=== PATIENT | female | born 1970 | race Caucasian/White ===

== ENCOUNTER 2016-06-28 11:57 | Emergency (ER) | payer MEDICAID ==
[~2016-06-28 11:57] MED LIST: CEPH500C3 PO; MEDR4PAK3 PO; SERT100 PO; TRIA.1%T TOP
[2016-06-28 12:01] VITALS: BP 133/77; PULSE 78; RESP 16; TEMP 98.8; O2SAT 98
--- NOTE | 2016-06-28 12:17 | PD ---
Physical Exam Time Seen by Provider: 12:13 Narrative 45 year old female presents to ED for evaluation of lower abdominal pain since intercourse two weeks ago. Following intercourse she bled for a few days. She had intercourse again two days ago and had bleeding again following it. Her LMP was sometime last year, but she is not sure of the date. Reports no urinary symptoms. Has been having some vaginal bleeding. Subjective fever. States she is in a monogamous relationship. Has a history of endometriosis. No other significant health history. Data Data Last Documented VS Vital Signs Date Time Temp Pulse Resp B/P Pulse Ox O2 Delivery O2 Flow Rate FiO2 06/28/16 12:01 98.8 78 16 133/77 98 MDM Medical Record Reviewed: Yes Supervised Visit with HANNY: No Narrative Course 45 year old female presents to the ED for evaluation of lower abdominal pain and post coital bleeding. Appears well. VSS. Condition: Stable Becky Diallo Jun 28, 2016 12:17
[2016-06-28 13:21] LABS: BACTERIA, URINE OCC /hpf; BLOOD, URINE TRACE (NEG); COMMENT (UR) CULT NOT INDICATED; CULTURE IF INDICATED CULT NOT INDICATED; GLUCOSE,URINE NEG (NEG); KETONE, URINE NEG (NEG); MUCUS URINE FEW /lpf (OCC); NITRITE,URINE NEG (NEG); PH, URINE 6.5 (5.0-8.5); SQUAMOUS EPITHELIAL CELL URINE 3 /hpf (0-5); URINE COLOR YELLOW (YELLW/STRAW)
--- NOTE | 2016-06-28 13:32 | PD ---
HPI Chief Complaint: Academic Program Specialist Problem/Complaint Time Seen by Provider: 12:27 Travel History International Travel<30 days: No Contact w/Intl Traveler<30days: No Traveled to known affect area: No History of Present Illness HPI This is a 45-year-old female who has a history of endometriosis who presents to the emergency department with nominal discomfort described as cramping, moderate severity, intermittent, worse after intercourse. She feels like something is getting pushed on when she has intercourse and she's been having some bleeding after intercourse which is unusual for her because she doesn't routinely have a menstrual cycle. She denies any associated fevers or chills, denies any vomiting but does feel nauseous from time to time. The pains been going on intermittently for 2 weeks. She doesn't get her menstrual cycle anymore so she's not sure if this could be her endometriosis acting up. She denies any diarrhea, vomiting, or vaginal discharge. She's had one sexual partner in the past 6 months. She doesn't currently have a climbing guide. PFSH Past Medical History Depression: Yes Cerebrovascular Accident: No Diabetes: No Diminished Hearing: No Reproductive: Yes (ENDOMETRIOSIS) Myocardial Infarction: No Menopausal: Yes : 2 Para: 2 Past Surgical History Abdominal Surgery: Yes (laparoscopy) Gynecologic Surgery: Yes Oral Surgery: Yes (wisdom) Other Surgery: Yes (BILATERAL FOOT BONE SPUR REMOVAL) Social History Alcohol Use: Yes (weekends) Tobacco Use: Yes (1ppd) Substance Use: No Allergies-Medications (Allergen,Severity, Reaction): Coded Allergies: Codeine (Verified Allergy, Severe, NAUSEA, 06/28/16) Reported Meds & Prescriptions Reported Meds & Active Scripts Active No Active Prescriptions or Reported Medications Review of Systems Except as stated in HPI: all other systems reviewed are Neg Physical Exam Narrative GENERAL:Well appearing, no acute distress SKIN: Focused skin assessment warm and dry. HEAD: Atraumatic. Normocephalic. EYES: Pupils equal and round. No injection or drainage. ENT: Moist mucous membranes NECK: Trachea midline. CARDIOVASCULAR: Regular rate and rhythm. No murmur appreciated. RESPIRATORY: Clear to auscultation. Breath sounds equal bilaterally. GASTROINTESTINAL: Abdomen soft, mildly tender to palpation in the suprapubic region with no rebound or guarding. CURING PRESS OPERATOR: Thick mucoid discharge coming from the cervix with no cervical motion tenderness or adnexal tenderness MUSCULOSKELETAL: No obvious deformities. NEUROLOGICAL: Awake and alert. No obvious cranial nerve deficits. Moving all extremities. PSYCHIATRIC: Appropriate mood and affect; insight and judgment normal. Data Data Last Documented VS Vital Signs Date Time Temp Pulse Resp B/P Pulse Ox O2 Delivery O2 Flow Rate FiO2 06/28/16 12:01 98.8 78 16 133/77 98 Orders Wet Prep Profile (06/28/16 12:42) Gc And Chlamydia Pcr (06/28/16 12:42) Urinalysis - C+S If Indicated (06/28/16 12:42) Ed Urine Pregnancytest Poc (06/28/16 12:42) Labs Laboratory Tests Test 06/28/16 12:56 Urine Color YELLOW Urine Turbidity HAZY Urine pH 6.5 Urine Specific [place] 1.014 Urine Protein NEG mg/dL Urine Glucose (UA) NEG mg/dL Urine Ketones NEG mg/dL Urine Occult Blood TRACE Urine Nitrite NEG Urine Bilirubin NEG Urine Urobilinogen LESS THAN 2.0 MG/DL Urine Leukocyte Esterase SMALL Urine RBC 2 /hpf Urine WBC 4 /hpf Urine Squamous Epithelial 3 /hpf Cells Urine Bacteria OCC /hpf Urine Mucus FEW /lpf Microscopic Urinalysis Comment CULT NOT INDICATED Clue Cells (Wet Prep) NONE SEEN Vaginal Trichomonas (Wet Prep) NONE SEEN Vaginal Yeast (Wet Prep) NONE SEEN MDM Medical Decision Making Medical Screen Exam Complete: Yes Emergency Medical Condition: Yes Interpretation(s) Afebrile, no tachycardia, normotensive Urinalysis: No infection Differential Diagnosis Cervicitis, pelvic inflammatory disease, ovarian cyst rupture, endometriosis, gynecologic malignancy, urinary tract infection Narrative Course This is a 45-year-old female who presents to the emergency department with pelvic pain, worse with intercourse associated with some vaginal spotting. She is very well-appearing. She does have mucoid discharge at the cervix concerning for possible sexually transmitted disease. I did discuss this possibility with her and I think it's reasonable to treat her empirically for cervicitis. She also may be having symptomatic endometriosis. I don't think she requires any advanced imaging here in the emergency department based on her benign exam and appearance ,and I think she needs follow-up with a climbing guide. Diagnosis Primary Impression: Cervicitis Patient Instructions: General Instructions Additional Instructions: If you develop severe or worsening abdominal pain, fever>100.4, persistent vomiting or inability to eat or drink return to the emergency department immediately. Follow up with [facility] at: Follow up with: [facility] [address] [facility] [place] [address] Office Hours Monday - 9:00 am - 5:30 pm Monday 8:00 am - 12:00 pm Teen Tuesdays 4:00 - 6:30 pm Med/Other Pt SpecificInfo: No Change to Meds Scripts No Active Prescriptions or Reported Meds Disposition: 01 DISCHARGE HOME Condition: Lorna Kamara MD Jun 28, 2016 13:32
[2016-06-28] MEDS ORDERED: LIDOCAINE HCL 1% 50 ML VIAL IM ONE (13:45)
[2016-06-28] MEDS ORDERED: AZITHROMYCIN PWD FOR SUSP 1 GM PACKET PO ONE (13:45)
[2016-06-28] MEDS ORDERED: cefTRIAXone 250 MG VIAL IM ONE (13:45)
[2016-06-28 14:39] VITALS: BP 130/80
[2016-06-28 16:04] LABS: CHLAMYDIA PCR DETECTED (NOT DETECT); NEISSERIA PCR NOT DETECTED (NOT DETECT)
== END 2016-06-28 14:49 | disposition home or self-care (01) ==
LOC: NEPD 11:57
DX: N72 Inflammatory disease of cervix uteri (principal)
CPT/HCPCS: 81001; 84703; 87210; 87491; 87591; 96372; 99283; J0696

== ENCOUNTER 2016-11-24 11:06 | Emergency (ER) | payer MEDICAID ==
[~2016-11-24] VITALS: Ht 165.1 cm; Wt 57.0 kg
[2016-11-24] MEDS ORDERED: IOHEXOL 350 MG/ML 10 ML VIAL (for RAD DIAG) IVCONTRAST ONE (11:07)
[2016-11-24 11:08] VITALS: BP 124/75; PULSE 85; RESP 20; TEMP 98.5; O2SAT 97
[2016-11-24 11:30] VITALS: PULSE 80; RESP 16; O2SAT 100
[2016-11-24] MEDS ORDERED: SODIUM CHLORIDE 0.9% FLUSH 10 ML FLUSH IV FLUSH PRN (11:30)
--- NOTE | 2016-11-24 11:34 | PD ---
HPI Chief Complaint: Abdominal Pain Time Seen by Provider: 11:29 Travel History International Travel<30 days: No Contact w/Intl Traveler<30days: No Traveled to known affect area: No History of Present Illness HPI 46-year-old female patient with history of endometriosis, perimenopausal, has not had her menses and several months, presents to the ER today because of 2 weeks history of lower abdominal pains, diarrhea, states that she had small amounts of vaginal bleeding when she wiped for several days. She has had intermittent nausea, but reports no fevers or burning on urination. Pain currently rated as 6 out of 10. Modifying Factors: None Associated Signs & Symptoms: Lower abdominal pain, nausea, diarrhea, vaginal bleeding Risk Factors: None PFSH Past Medical History Depression: Yes Cerebrovascular Accident: No Diabetes: No Diminished Hearing: No Neurologic: Yes Reproductive: Yes (ENDOMETRIOSIS) Myocardial Infarction: No Tetanus Vaccination: > 5 Years Influenza Vaccination: No ?: Not LMP: UNKNOWN Menopausal: Yes : 2 Para: 2 Past Surgical History Abdominal Surgery: Yes (laparoscopy) Gynecologic Surgery: Yes Oral Surgery: Yes (wisdom) Other Surgery: Yes (BILATERAL FOOT BONE SPUR REMOVAL) Social History Alcohol Use: Yes (weekends) Tobacco Use: Yes (1ppd) Substance Use: No (PT DENIES ) Allergies-Medications (Allergen,Severity, Reaction): Coded Allergies: codeine (Unverified Adverse Reaction, Severe, NAUSEA, 11/24/16) Reported Meds & Prescriptions Reported Meds & Active Scripts Active No Active Prescriptions or Reported Medications Review of Systems Except as stated in HPI: all other systems reviewed are Neg Physical Exam Narrative GENERAL: Middle age well-developed female patient currently in mild distress. Awake and oriented 3. SKIN: Focused skin assessment warm/dry. HEAD: Atraumatic. Normocephalic. EYES: Pupils equal and round. No scleral icterus. No injection or drainage. ENT: No nasal bleeding or discharge. Mucous membranes pink and moist. NECK: Trachea midline. No JVD. CARDIOVASCULAR: Regular rate and rhythm. No murmur appreciated. RESPIRATORY: No accessory muscle use. Clear to auscultation. Breath sounds equal bilaterally. GASTROINTESTINAL: Abdomen soft, mild diffuse abdominal tenderness without guarding or rebound, nondistended. Hepatic and splenic margins not palpable. GENITOURINARY: Normal external genitalia without lesions or erythema. Vaginal vault with small amount of blood but no drainage. Cervical os was closed without drainage. No cervical motion tenderness. Uterus nontender and nonenlarged. Bilateral adnexa nontender without masses. MUSCULOSKELETAL: No obvious deformities. No clubbing. No cyanosis. No edema. NEUROLOGICAL: Awake and alert. No obvious cranial nerve deficits. Motor grossly within normal limits. Normal speech. PSYCHIATRIC: Appropriate mood and affect; insight and judgment normal. Data Data Last Documented VS Vital Signs Date Time Temp Pulse Resp B/P (MAP) Pulse Ox O2 Delivery O2 Flow Rate FiO2 11/24/16 12:07 97.8 68 16 124/61 (82) 100 11/24/16 11:30 Room Air Orders Orders Complete Blood Count With Diff (11/24/16 11:29) Comprehensive Metabolic Panel (11/24/16 11:29) Lipase (11/24/16 11:29) Urinalysis - C+S If Indicated (11/24/16 11:29) Iv Access Insert/Monitor (11/24/16 11:29) Ecg Monitoring (11/24/16 11:29) Oximetry (11/24/16 11:29) Sodium Chloride 0.9% Flush (Ns Flush) (11/24/16 11:30) Ed Urine Pregnancytest Poc (11/24/16 11:29) Ct Abd/Pel W Iv Contrast(Rout) (11/24/16 11:38) Gc And Chlamydia Pcr (11/24/16 11:38) Wet Prep Profile (11/24/16 11:38) Iohexol 350 Inj (Omnipaque 350 Inj) (11/24/16 11:07) Labs Laboratory Tests Test 11/24/16 11:30 11/24/16 11:35 11/24/16 12:09 White Blood Count 6.5 TH/MM3 Red Blood Count 4.85 MIL/MM3 Hemoglobin 15.4 GM/DL Hematocrit 45.2 % Mean Corpuscular Volume 93.3 FL Mean Corpuscular Hemoglobin 31.7 PG Mean Corpuscular Hemoglobin Concent 33.9 % Red Cell Distribution Width 12.9 % Platelet Count 263 TH/MM3 Mean Platelet Volume 8.8 FL Neutrophils (%) (Auto) 58.6 % Lymphocytes (%) (Auto) 30.1 % Monocytes (%) (Auto) 8.5 % Eosinophils (%) (Auto) 2.3 % Basophils (%) (Auto) 0.5 % Neutrophils # (Auto) 3.8 TH/MM3 Lymphocytes # (Auto) 2.0 TH/MM3 Monocytes # (Auto) 0.6 TH/MM3 Eosinophils # (Auto) 0.2 TH/MM3 Basophils # (Auto) 0.0 TH/MM3 CBC Comment DIFF FINAL Differential Comment Blood Urea Nitrogen 11 MG/DL Creatinine 0.77 MG/DL Random Glucose 71 MG/DL Total Protein 7.4 GM/DL Albumin 3.6 GM/DL Calcium Level 8.6 MG/DL Alkaline Phosphatase 125 U/L Aspartate Amino Transf (AST/SGOT) 152 U/L Alanine Aminotransferase (ALT/SGPT) 290 U/L Total Bilirubin 0.4 MG/DL Sodium Level 141 MEQ/L Potassium Level 3.7 MEQ/L Chloride Level 109 MEQ/L Carbon Dioxide Level 27.4 MEQ/L Anion Gap 5 MEQ/L Estimat Glomerular Filtration Rate 80 ML/MIN Lipase 232 U/L Urine Color LIGHT-YELLOW Urine Turbidity CLEAR Urine pH 6.5 Urine Specific [place] 1.005 Urine Protein NEG mg/dL Urine Glucose (UA) NEG mg/dL Urine Ketones NEG mg/dL Urine Occult Blood MOD Urine Nitrite NEG Urine Bilirubin NEG Urine Urobilinogen LESS THAN 2.0 MG/DL Urine Leukocyte Esterase SMALL Urine RBC 1 /hpf Urine WBC LESS THAN 1 /hpf Urine Squamous Epithelial Cells 2 /hpf Urine Bacteria RARE /hpf Urine Mucus FEW /lpf Microscopic Urinalysis Comment CULT NOT INDICATED Clue Cells (Wet Prep) NONE SEEN Vaginal Trichomonas (Wet Prep) NONE SEEN Vaginal Yeast (Wet Prep) NONE SEEN Chlamydia trachomatis DNA (PCR) NOT DETECTED Neisseria gonorrhoeae DNA (PCR) NOT DETECTED MDM Medical Decision Making Medical Screen Exam Complete: Yes Emergency Medical Condition: Yes Medical Record Reviewed: Yes Interpretation(s) Laboratory Tests Test 11/24/16 11:30 11/24/16 11:35 11/24/16 12:09 Hemoglobin 15.4 GM/DL (11.6-15.3) Monocytes (%) (Auto) 8.5 % (0.0-8.0) Random Glucose 71 MG/DL (74-106) Alkaline Phosphatase 125 U/L (45-117) Aspartate Amino Transf (AST/SGOT) 152 U/L (15-37) Alanine Aminotransferase (ALT/SGPT) 290 U/L (10-53) Chloride Level 109 MEQ/L (98-107) Estimat Glomerular Filtration Rate 80 ML/MIN (>89) Urine Occult Blood MOD (NEG) Urine Leukocyte Esterase SMALL (NEG) Urine Bacteria RARE /hpf (NONE) Urine Mucus FEW /lpf (OCC) Last 24 hours Impressions Abdomen/Pelvis CT 11/24/16 1138 Signed Impressions: Service Date/Time: , November 24, 2016 13:32 - CONCLUSION: Few benign hepatic cysts. No evidence of bowel obstruction or mass. The appendix is normal. Stool throughout the colon without evidence of wall thickening or mass. Shiva Hurt MD Differential Diagnosis Lower abdominal pain, nausea, diarrhea, vaginal bleeding: UTI versus dysfunctional uterine bleeding versus gastroenteritis Narrative Course Lab work shows elevated liver enzymes. CAT scan shows benign liver cyst but no signs of gallbladder issues and no signs of other acute pathology. Patient states that she had been exposed hepatitis C but never got testing. At this point, I would recommend that she gets testing for further evaluation. In addition, she is not and has postmenopausal vaginal bleeding, will need to follow-up with [facility] for further evaluation of endometrium. Return for any worsening in bleeding, new symptoms as needed. The plan has discussed with her and she states understanding. Diagnosis Primary Impression: Liver enzyme elevation Additional Impressions: Hepatic cyst Postmenopausal vaginal bleeding Additional Instructions: Please follow-up with your primary care physician regarding hepatic enzyme elevations and with your [facility] regarding the abnormal vaginal bleeding. Return for any worsening in symptoms as needed. Med/Other Pt SpecificInfo: Prescription(s) given Scripts Tramadol (Tramadol) 50 Mg Tab 50 MG PO Q8H Y for PAIN, #15 TAB 0 Refills Prov: Quan Ortiz MD 11/24/16 Disposition: 01 DISCHARGE HOME Condition: Stable Quan Ortiz MD Nov 24, 2016 11:34
[2016-11-24 12:01] LABS: AUTOMATED NEUTROPHIL # 3.8 TH/MM3 (1.8-7.7); BASOPHIL % 0.5 % (0.0-2.0); EOSINOPHIL # 0.2 TH/MM3 (0-0.4); EOSINOPHIL % 2.3 % (0.0-4.0); HEMATOCRIT 45.2 % (35.0-46.0); HEMO FLAGS DIFF FINAL; LYMPH % 30.1 % (9.0-44.0); MEAN CELL VOLUME 93.3 FL (80.0-100.0); MEAN CORPUSCULAR HEMOGLOBIN 31.7 PG (27.0-34.0); MEAN CORPUSCULAR HGB CONC 33.9 % (32.0-36.0); MONO % 8.5 % (0.0-8.0); NEUT % 58.6 % (16.0-70.0); PLATELET COUNT 263 TH/MM3 (150-450); RED BLOOD COUNT 4.85 MIL/MM3 (4.00-5.30); RED CELL DISTRIBUTION WIDTH 12.9 % (11.6-17.2); WHITE BLOOD COUNT 6.5 TH/MM3 (4.0-11.0)
[2016-11-24 12:04] LABS: BACTERIA, URINE RARE /hpf; BLOOD, URINE MOD (NEG); COMMENT (UR) CULT NOT INDICATED; CULTURE IF INDICATED CULT NOT INDICATED; GLUCOSE,URINE NEG (NEG); KETONE, URINE NEG (NEG); MUCUS URINE FEW /lpf (OCC); NITRITE,URINE NEG (NEG); PH, URINE 6.5 (5.0-8.5); SQUAMOUS EPITHELIAL CELL URINE 2 /hpf (0-5); URINE COLOR LIGHT-YELLOW (YELLW/STRAW)
[2016-11-24 12:07] VITALS: BP 124/61; PULSE 68; RESP 16; TEMP 97.8; O2SAT 100
[2016-11-24 12:37] LABS: ALT (GPT) 290 U/L (10-53); ANION GAP 5 MEQ/L (5-15); AST (GOT) 152 U/L (15-37); BICARBONATE 27.4 MEQ/L (21.0-32.0); BLOOD UREA NITROGEN 11 MG/DL (7-18); CHLORIDE 109 MEQ/L (98-107); GLOMERULAR FILTRATION RATE 80 ML/MIN (>89); POTASSIUM 3.7 MEQ/L (3.5-5.1); SODIUM (NA) 141 MEQ/L (136-145)
[2016-11-24 12:40] LABS: ALKALINE PHOSPHATASE 125 U/L (45-117); TOTAL BILIRUBIN ADULT 0.4 MG/DL (0.2-1.0)
--- NOTE | 2016-11-24 14:10 | RADRPT ---
EXAM DATE/TIME: 11/24/2016 13:32 [facility] COMPARISON: No previous studies available for comparison. INDICATIONS : Abdomen pain for 2 weeks with nausea IV CONTRAST: 93 cc Omnipaque 350 (iohexol) IV ORAL CONTRAST: No oral contrast ingested. RADIATION DOSE: 9.96 CTDIvol (mGy) MEDICAL HISTORY : None SURGICAL HISTORY : None. ENCOUNTER: Initial ACUITY: 2 weeks PAIN SCALE: 5/10 LOCATION: diffuse abdomen TECHNIQUE: Volumetric scanning of the abdomen and pelvis was performed. Using automated exposure control and ad justment of the mA and/or kV according to patient size, radiation dose was kept as low as reasonably achievable to obtain optimal diagnostic quality images. DICOM format image data is available electro nically for review and comparison. FINDINGS: LOWER LUNGS: The visualized lower lungs are clear. LIVER: Homogeneous density without lesion other than four small cysts. There is no dilation of the biliary tree. No calcified gallstones. SPLEEN: Normal size without lesion. PANCREAS: Within normal limits. KIDNEYS: Normal in size and shape. There is no mass, stone or hydronephrosis. ADRENAL GLANDS: Within normal limits. VASCULAR: There is no aortic aneurysm. BOWEL/MESENTERY: The stomach, small bowel, and colon demonstrate no acute abnormality. There is no free intraperitone al air or fluid. ABDOMINAL WALL: Within normal limits. RETROPERITONEUM: There is no lymphadenopathy. BLADDER: No wall thickening or mass. REPRODUCTIVE: Within normal limits. Suspected ovarian cyst INGUINAL: There is no lymphadenopathy or hernia. MUSCULOSKELETAL: Within normal limits for patient age. Lipoma within the right gluteus sanjana CONCLUSION: Few benign hepatic cysts. No evidence of bowel obstruction or mass. The appendix is normal. Stool thr oughout the colon without evidence of wall thickening or mass. Shiva Hurt MD on November 24, 2016 at 14:06 Board Certified Radiologist. This report was verified electronically.
[2016-11-24 14:14] LABS: CHLAMYDIA PCR NOT DETECTED (NOT DETECT); NEISSERIA PCR NOT DETECTED (NOT DETECT)
[2016-11-24] MEDS ORDERED: TRAM50TA PO (14:26)
[2016-11-24 14:45] VITALS: BP 122/81; TEMP 97.8
== END 2016-11-24 14:45 | disposition home or self-care (01) ==
LOC: NEPE 11:06
DX: R74.8 Abnormal levels of other serum enzymes (principal); K76.89 Other specified diseases of liver; N95.0 Postmenopausal bleeding; R19.7 Diarrhea, unspecified; F17.210 Nicotine dependence, cigarettes, uncomplicated
CPT/HCPCS: 74177; 80053; 81001; 83690; 84703; 85025; 87210; 87491; 87591; 99285; Q9967

== ENCOUNTER 2017-02-28 14:10 | Emergency (ER) | payer MEDICAID ==
[~2017-02-28 14:10] MED LIST changes: -CEPH500C3 PO; -MEDR4PAK3 PO; -SERT100 PO; +TRAM50TA PO; -TRIA.1%T TOP
[2017-02-28 14:12] VITALS: BP 107/68; PULSE 73; RESP 16; TEMP 98.9; O2SAT 98
--- NOTE | 2017-02-28 15:07 | PD ---
HPI Chief Complaint: Cold / Flu Symptoms Time Seen by Provider: 14:37 Travel History International Travel<30 days: No Contact w/Intl Traveler<30days: No Traveled to known affect area: No History of Present Illness HPI This is a 46-year-old female here for evaluation of possible dehydration. She reports she was diagnosed with influenza yesterday at a walk in urgent care clinic. She was put on Tamiflu. She reports she vomited once today. She has generalized body aches and felt she may be dehydrated. She also reports that she has upper back and chest pain that occurs while coughing. Symptom severity is moderate. No aggravating or alleviating factors. PFSH Past Medical History Depression: Yes Cerebrovascular Accident: No Diabetes: No Diminished Hearing: No Neurologic: Yes Reproductive: Yes (ENDOMETRIOSIS) Myocardial Infarction: No ?: Not Menopausal: Yes : 2 Para: 2 Past Surgical History Abdominal Surgery: Yes (laparoscopy) Gynecologic Surgery: Yes Oral Surgery: Yes (wisdom) Other Surgery: Yes (BILATERAL FOOT BONE SPUR REMOVAL) Social History Alcohol Use: Yes (weekends) Tobacco Use: Yes (1ppd) Substance Use: No (PT DENIES ) Allergies-Medications (Allergen,Severity, Reaction): Coded Allergies: codeine (Unverified Adverse Reaction, Severe, NAUSEA, 11/24/16) Reported Meds & Prescriptions Reported Meds & Active Scripts Active Review of Systems Except as stated in HPI: all other systems reviewed are Neg General / Constitutional: Positive: Fever, Chills Eyes: No: Visual changes HENT: No: Headaches Respiratory: Positive: Cough Gastrointestinal: Positive: Nausea, No: Abdominal Pain Genitourinary: No: Dysuria Musculoskeletal: Positive: Myalgias Skin: No Rash Physical Exam Narrative GENERAL: Middle-aged well-appearing female. SKIN: Warm and dry. No rash. HEAD: Normocephalic. HEAD: Atraumatic. Normocephalic. EYES: PERRL, EOMI, no discharge or injection. No scleral icterus. EARS: Bilateral pinnae and external canals appear within normal limits. Bilateral tympanic membranes without erythema, dullness or perforation. NOSE: Nasal turbinates appear normal without nasal blood, purulent drainage or septal hematoma. THROAT: Mucosa pink and moist. No erythema or exudates. No uvular edema. No uvular, palatal, or tonsillar deviation. Airway patent. NECK: Supple, trachea midline. No JVD or lymphadenopathy. No meningismus CARDIOVASCULAR: Regular rate and rhythm without murmurs, gallops, or rubs. Mild tenderness to the upper chest wall to palpation. RESPIRATORY: Breath sounds equal bilaterally. No accessory muscle use. GASTROINTESTINAL: Abdomen soft, non-tender, nondistended. MUSCULOSKELETAL: No cyanosis, or edema. BACK: Mildly tender in the bilateral trapezius muscles. No CVA tenderness. Data Data Last Documented VS Vital Signs Date Time Temp Pulse Resp B/P (MAP) Pulse Ox O2 Delivery O2 Flow Rate FiO2 02/28/17 14:12 98.9 73 16 107/68 (81) 98 Room Air MDM Medical Decision Making Medical Screen Exam Complete: Yes Emergency Medical Condition: Yes Differential Diagnosis Influenza, pneumonia, dehydration, chest wall strain Narrative Course 46-year-old female here with flulike symptoms. She was concerned that she was dehydrated because she vomited once. She is well-appearing. Her vital signs are stable. Her physical exam is essentially benign. She appears well- hydrated. He did mention some upper chest and upper back pain while coughing. She has reproducible chest wall and upper back pain. I offered EKG which she declined. She was reassured that her symptoms were consistent with influenza. She was offered Zofran for her nausea for which she declined. She was instructed to continue Tylenol ibuprofen and stay well-hydrated. Diagnosis Primary Impression: Influenza Referrals: Primary Care Physician Additional Instructions: Stay well hydrated by drinking fluids frequently. Continue Tylenol or ibuprofen as needed for pain and body aches. Use [id number] cough and cold medication. Follow-up with her primary doctor Scripts No Active Prescriptions or Reported Meds Disposition: 01 DISCHARGE HOME Condition: Stable Giovana Segundo Myrtle CANALES Feb 28, 2017 15:07
== END 2017-02-28 15:22 | disposition home or self-care (01) ==
LOC: NEPK 14:10
DX: J11.1 Influenza due to unidentified influenza virus with other respiratory manifestations (principal); F17.200 Nicotine dependence, unspecified, uncomplicated
CPT/HCPCS: 99282